=== PATIENT | female | born 1960 | race Caucasian/White ===

== ENCOUNTER → 2016-07-14 | Outpatient (CLI) | payer MEDICAID ==
[~2016-07-14] MED LIST: ALBUTEROL20 ml INH; ATORVASTATIN CA10 MG PO; AUGMENTIN875 M1 PO; BIOTIN OTC PO; BUSPAR5 M1 PO; DEMADEX PO; DESYREL50 MG PO; EFFEXOR-XR150 MG PO; HYDROCODON-ACE1 EAC5 PO; HYDROCODONE/APA1 T16 PO; IBUPROFEN PO; IBUPROFEN800 MG PO; K-DUR20 ME2 PO; LYRICA50 MG PO; NEURONTIN800 MG PO; NEXIUM PO; PERCOCET 5/321 UDTAB DOB; REGLAN10 MG PO; SLEEP AID PO; VENLAFAXINE HC100 MG PO; VENTOLIN HFA; ZOFRAN ODT4 MG PO; ZYLOPRIM100 MG PO; [UNRECOGNIZED DRUG - OTHER]
--- NOTE | ~2016-07-14 | EKG ---
PATIENT: DC BAUER UNIT #: [id number] Ventricular Rate: 87 BPM Atrial Rate: 87 BPM P-R Interval: 154 ms QRS Duration: 86 ms Q-T Interval: 376 ms QTC Calculation(Bezet): 452 ms P [place]: 36 degrees Calculated R [place]: -17 degrees Calculated T [place]: 13 degrees Diagnosis Line: Normal sinus rhythm Diagnosis Line: Minimal voltage criteria for LVH, may be normal Diagnosis Line: variant Diagnosis Line: Otherwise normal ECG Diagnosis Line: When compared with ECG of 06-OCT-2015 19:14, Diagnosis Line: T wave inversion now evident in Inferior leads Diagnosis Line: Confirmed by GAGANDEEP AGUILAR MD ([id number]) on 07/14/2016 Diagnosis Line: 6:26:19 PM INTERPRETING MD: LAUREN BYRNE
[2016-07-14 13:55] LABS: HEMATOCRIT 40.4 % (35.0-45.0); HEMOGLOBIN 13.9 gm/dL (12.0-16.0); MEAN CELL VOLUME 93.3 FL (83-96); MEAN CORPUSCULAR HEMOGLOBIN 32.2 PG (28-34); MEAN CORPUSCULAR HGB CONC 34.5 g/dL (30-36); MEAN PLATELET VOLUME 8.6 FL (6.5-11.5); RED BLOOD COUNT 4.33 X10e (3.90-5.30); RED CELL DISTRIBUTION WIDTH 13.5 % (11.0-15.5); WHITE BLOOD COUNT 7.8 X10e3 (4.0-10.5)
[2016-07-14 14:30] LABS: BLOOD UREA NITROGEN 18 mg/dL (9-23); CALCIUM SERUM 9.3 mg/dL (8.4-10.2); CARBON DIOXIDE 29 mmol/L (22-31); CHLORIDE 106 mmol/L (100-111); CREATININE SERUM 0.9 mg/dL (0.6-1.4); GLOM FILT RATE Estimated ABOVE60 mL/min (>60); GLUCOSE FASTING 113 mg/dL (70-110); POTASSIUM 3.9 mmol/L (3.5-5.1); SODIUM 140 mmol/L (135-145)
== END | disposition home or self-care (01) ==
LOC: CAMB 11:38
PROVIDERS: Orthopaedic Surgery
DX: Z01.812 Encounter for preprocedural laboratory examination (principal); M21.6X2 Other acquired deformities of left foot
CPT/HCPCS: 36415; 80048; 85027; 93005

== ENCOUNTER 2016-07-19 05:48 | Inpatient (IN) | payer MEDICAID ==
--- NOTE | ~2016-07-19 | HP ---
Unit #: [id number] #: [id number] Patient: DC BAUER [id number] [address] [address] [id number] MR#: [id number] NAME: DC BAUER. ROOM: Age: Sex: F Admission Date: 07/19/2016 : 1960 Attending Physician: Ana Champion M.D. Primary Care Physician: Naa Oquendo A.P.R.N. HISTORY AND PHYSICAL CHIEF COMPLAINT Left foot pain. HISTORY OF PRESENT ILLNESS The patient is a 55-year-old female with a history of Iapfoym-Iekcv-Jemyr disease and fibromyalgia. 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 The patient complains of global bilateral midfoot and forefoot pain. She has been treated with bracing. She complains of left foot pain greater than right foot pain although she has bilateral foot deformities. She complains of heel pain and diffuse metatarsalgia. She also complains of symptomatic claw toes involving all toes of the left foot. The patient is therefore admitted for correction of her left foot deformity. PAST MEDICAL HISTORY Past medical history is remarkable for Dullfpb-Viufc-Dmxcb disease, fibromyalgia, gastric ulcer disease, gastroesophageal reflux, hypercholesterolemia, hypertension, irritable bowel syndrome, migraine headaches, chest pain, sleep apnea, gout, nephropathy. HOME MEDICATIONS Allopurinol, buspirone, Bystolic, cyclobenzaprine, Dexilant, gabapentin, Indocin, lorazepam, Nitrostat, Zofran, oxycodone 5/325 p.o. q.12 h., Symbicort, torsemide, trazodone, venlafaxine, Ventolin, Voltaren 1% gel. ALLERGIES Cymbalta, morphine, Phenergan, tramadol. PAST SURGICAL HISTORY , colonoscopy, femoral repair, cholecystectomy, gastric bypass, hysterectomy, oophorectomy, pacemaker, endoscopy. FAMILY HISTORY Arthritis, asthma, breast cancer, depression, hypercholesterolemia, hypertension, alcohol abuse. SOCIAL HISTORY The patient is a nonsmoker and denies the use of alcohol or drugs. PHYSICAL EXAMINATION GENERAL: Height 5 foot 5, weight 229 pounds, BMI of 38. In general this Unit #: [id number] #: [id number] Patient: DC BAUER is a morbidly obese female in no acute distress. HEENT: Pharynx is clear. NECK: The neck is supple, without mass. HEART: Exam reveals a regular sinus rhythm without murmurs or gallops. LUNGS: The lungs are clear. ABDOMEN: The abdomen is soft and nontender, without masses or organomegaly. EXTREMITIES: Evaluation of the left foot demonstrates a significant cavus deformity with neutral hindfoot. The forefoot is in rectus position. Bilateral ankle dorsiflexion is limited to -5 degrees, plantar flexion 40 degrees, subtalar inversion 30, eversion is 10. First MTP join dorsiflexion 90, plantar flexion 30. She has fixed claw toe deformities of the first through fifth toes bilaterally. Distal pulses are 1+/2. Sensation is intact. Motor exam shows 5+/5 motor strength testing ankle dorsiflexion, plantar flexion, eversion and inversion. DIAGNOSTIC STUDIES IMAGING: Standing x-rays of the left foot show a lateral talo-first metatarsal angle of 30 degrees, calcaneal pitch of 32 degrees, medial cuneiform height 23 mm. ADMITTING DIAGNOSIS 1. Symptomatic left cavus foot secondary to Jeinepy-Etscr-Stfkc disease. 2. Left first through fifth claw toes, symptomatic. 3. Left ankle equinus. PLAN 1. The patient has failed conservative care to include bracing and orthotics. The patient is therefore admitted for surgical correction. 2. This would entail dorsal closing wedge osteotomy of the midfoot through the naviculocuneiform joint and cuboid. A calcaneal osteotomy will not be required because the patient does not have heel varus. A plantar fascia release will be performed along with a gastrocnemius recession. Claw toes will be corrected with Mini MaxTorque screws. This procedure was described along with risks of bleeding, infection, nerve damage, need for further surgery in the future, prolonged recovery time, deep venous thrombosis, pulmonary embolism, anesthetic complications, persistent pain, persistent swelling. The patient understands the above risks and agrees to proceed with the treatment plan. She reviewed the operative permit and signed it in our office. Dictated by R. Magnus Lott/maddie TD: 07/18/2016 22:53 JOB #: [id number] Unit #: [id number] #: [id number] Patient: DC BAUER HISTORY AND PHYSICAL X Sil Champion MD X HISTORY AND PHYSICAL
--- NOTE | ~2016-07-19 | OR ---
Unit #: [id number] #: [id number] Patient: DC BAUER [id number] [address] [address] [id number] I MR#: [id number] NAME: DC BAUER. ROOM: [facility] Date of Procedure: 07/19/2016 Admission Date: 07/19/2016 Surgeon: Ana Champion M.D. : 1960 Attending Physician: Ana Champion M.D. Primary Care Physician: Naa Oquendo A.P.R.N. OPERATIVE REPORT PREOPERATIVE DIAGNOSES 1. Left cavus foot secondary to Uutjqug-Alrrc-Zfmcn disease. 2. Left first through fifth claw toes, symptomatic. POSTOPERATIVE DIAGNOSES 1. Left cavus foot secondary to Rnzsobz-Uiipa-Lifvs disease. 2. Left first through fifth claw toes, symptomatic. PROCEDURES PERFORMED 1. Left dorsal closing midfoot osteotomy with naviculocuneiform joint fusion (95500). 2. Left hallux interphalangeal joint fusion (90322). 3. Left second claw toe correction (73016, 03102). 4. Left third claw toe correction (19362, 83409). 5. Left fourth claw toe correction (30085, 31014). 6. Left fifth claw toe correction (27381, 11980). 7. Left plantar fascia release (01168). PARTS REPRESENTATIVE MD Elliott and IVELISSE Denis. ANESTHESIA Popliteal saphenous block and general. INDICATIONS FOR SURGERY The patient is a 55-year-old female with symptomatic left cavus foot and symptomatic clawing of all toes secondary to Ezfrfkb-Tqavg-Bhrvr disease. She has failed treatment with bracing and orthotics. She has significant pain in the plantar forefoot secondary to forefoot equinus. She is therefore to undergo correction of her deformities surgically. DESCRIPTION OF PROCEDURE The patient was taken to the operating room following left popliteal saphenous block. She was placed in supine position. General anesthetic was induced. The left foot was identified as the correct operative extremity during the time-out procedure. The IV antibiotic protocol was followed. The left foot was then prepped and draped in the usual sterile fashion. The leg was exsanguinated and the thigh tourniquet inflated to 300 mmHg. A medial longitudinal incision was made over the mid foot. Subcutaneous tissue was divided. The anterior tibial tendon was identified and Unit #: [id number] #: [id number] Patient: DC BAUER. The naviculocuneiform joint was exposed subperiosteally. A lateral midfoot longitudinal incision was then made. The subcutaneous tissue was carefully divided. The extensor digitorum brevis muscle was reflected proximally and superiorly to expose the cuboid. Under C-arm fluoroscopic control, two converging 0.062-inch diameter smooth K-wires were drilled from dorsal to plantar to form a 1.5 cm closing wedge dorsally over the naviculocuneiform joint. These wires were then used as guides for the sagittal saw to cut the midfoot fashioning a dorsal closing wedge midfoot osteotomy through the naviculocuneiform joint. The osteotomy was completed across the cuboid. The bony wedge was then removed. A 3 cm incision was made over the medial heel. The subcutaneous tissue was divided. The plantar fascia was exposed and the plantar fascia was cut in its entirety with tenotomy scissors. This allowed complete closure of the dorsal closing wedge osteotomy. The osteotomy was then provisionally fixated with 2 crossed K-wires placed from distal to proximal. The OrthoHelix plating system was utilized to place 3 Peanut plates over the dorsal, dorsal lateral, and dorsal medial aspect of the osteotomy site. These plates were fixated with 4.0 mm diameter cortical screws. Excellent fixation was achieved. Because of significant clawing of all the toes, the toes were fused in straight position. A dorsal transverse incision was made over the hallux interphalangeal joint. Subcutaneous tissue was divided. A microsagittal saw was used to remove the articular cartilage from both sides of the joint. The guide pin was then placed through the middle of the distal phalanx drilled out of the tip of the toe and then reversed across the interphalangeal joint. A small stab incision was made. The tip of the toe and the countersink were utilized. A 3.8 mm diameter Mini MaxTorque screw was then placed over the guide pin and tightened. Excellent fixation was achieved. A dorsal transverse elliptical incisions were then made over the proximal interphalangeal joints of the second, third, fourth, and fifth toes. The skin and joint capsule were excised along in line with these incisions. The microsagittal saw was then used to remove the articular cartilage from both sides of the proximal interphalangeal joints of the second, third, fourth, and fifth toes. The definitive internal fixation of the toes was performed with a 3.2 mm diameter OrthoHelix Mini MaxTorque screws. Prior to screw placement, the flexor digitorum longus tendon was released with tenotomy scissors through the dorsal aspect of the proximal interphalangeal joint. A 3.2 mm diameter Mini MaxTorque screws were then placed over the pins and tightened. Excellent fixation was achieved. All toes rested in excellent position except for the fifth toe which was still slightly hyperextended at the metatarsophalangeal joint. Therefore, a 3 cm incision was made over the dorsal aspect of the fifth metatarsal. The subcutaneous tissue was divided. The extensor digitorum longus tendon to the fifth toe was then lengthened in a Z fashion and then sutured in a lengthened position with 3-0 Vicryl. It was then allowed the toe to rest in satisfactory position. Unit #: [id number] #: [id number] Patient: DC BAUER All wounds were copiously irrigated. The tourniquet was released with a total tourniquet time of 1 hour 50 minutes. Bleeding was controlled with electrocautery. Subcutaneous tissue was closed with 3-0 Vicryl and skin was closed with 3-0 nylon horizontal mattress sutures. Xeroform gauze dressing, sponges, Webril, and a posterior fiberglass splint were applied. The patient was then transported to the recovery room in stable condition. ESTIMATED BLOOD LOSS Minimal. COMPLICATIONS None. SPECIMENS None. TOURNIQUET TIME 1 hour 50 minutes. Dictated by.Magnus Roper/gutierrez TD: 07/20/2016 06:31 JOB #: [id number] OPERATIVE REPORT X Sil Champion MD X PROCEDURE OPERATIVE NOTE
--- NOTE | ~2016-07-19 | DS ---
Unit #: [id number] #: [id number] Patient: DC BAUER [id number] [address] [place], [place] [address] [id number] I MR#: [id number] NAME: DC BAUER. ROOM: [facility] Age: 55 Sex: F Admission Date: 07/19/2016 : 1960 Discharge Date: 07/22/2016 Attending Physician: Ana Champion M.D. Primary Care Physician: Naa Oquendo A.P.R.N. DISCHARGE SUMMARY CHIEF COMPLAINT Left symptomatic cavus foot and claw toes. HISTORY OF PRESENT ILLNESS This 55-year-old female, with symptomatic left cavus foot and symptomatic clawing of all toes secondary to Hqlqlbg-Eypsc-Hcnzp disease, has failed conservative care with bracing and orthotics. She was, therefore, admitted for surgical correction. HOSPITAL COURSE The patient was taken to the operating room on 07/19/2016 where she underwent left dorsal mid foot closing wedge osteotomy with naviculocuneiform fusion and fusion of the left hallux interphalangeal joint, as well as fusions of the 2nd through 5th toe PIP joints and plantar fascia release. There were no operative complications. She had a stable postoperative course, except she had difficulty with pain control. 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 She was seen by physical therapy on a daily basis and instructed on how to remain nonweightbearing on her affected side. Dressing was changed on the second postoperative day. Wounds were healing well. She was ready for discharge on the third postoperative day, 07/22/2016. FINAL DIAGNOSIS 1. Lvnaybo-Tbrlm-Etyee disease. 2. Left cavus foot, symptomatic. 3. Left first through fifth claw toes. DISPOSITION/RECOMMENDATIONS 1. The patient is discharged to rehabilitation. She will continue physical therapy and occupational therapy at that location. She will remain strictly nonweightbearing on the left foot for a total of 6 weeks. Dressing should be kept clean, dry and intact. The dressing does not have to be changed, and if it needs to be changed, please call Dr. Champion at for instructions. Continue ice and elevation. 2. Discharge medications are as follows: Albuterol 2 puffs q.6 hours p.r.n. dyspnea; Lyrica 50 mg p.o. t.i.d.; Desyrel 50 mg p.o. q.h.s.; Effexor 300 mg p.o. daily; Zofran 4 mg p.o. q.8 hours p.r.n. nausea; Demadex 20 mg p.o. b.i.d.; atorvastatin 10 mg p.o. daily; Zyloprim 100 mg p.o. t.i.d.; ibuprofen PM 3 tabs p.o. q.h.s.; Percocet 10/325 mg 1 or 2 p.o. q.4-6 hours p.r.n. pain; potassium chloride 20 mEq p.o. b.i.d.; polyethylene powder 1 cap p.o. b.i.d. in 6 oz of juice. 3. Follow up in the office with Dr. Champion in 10-14 days for dressing change, suture removal and application of a cast. Unit #: [id number] #: [id number] Patient: DC BAUER Dictated by.Magnus Roper/ethan TD: 07/21/2016 08:50 JOB #: [id number] DISCHARGE SUMMARY X Sil Champion MD X DISCHARGE SUMMARY
[~2016-07-19 05:48] MED LIST changes: -ALBUTEROL20 ml INH; -ATORVASTATIN CA10 MG PO; -HYDROCODON-ACE1 EAC5 PO; -IBUPROFEN PO; -K-DUR20 ME2 PO; -LYRICA50 MG PO; -NEXIUM PO; -[UNRECOGNIZED DRUG - OTHER]
[2016-07-19] MEDS ORDERED: [UNRECOGNIZED DRUG - OTHER] (06:36)
[2016-07-19] MEDS ORDERED: EFFEXOR-XR150 MG PO (08:13)
[2016-07-19] MEDS ORDERED: K-DUR20 ME2 PO (08:14)
[2016-07-19] MEDS ORDERED: IBUPROFEN PO (12:41)
[2016-07-19] MEDS ORDERED: ALBUTEROL20 ml INH (12:42)
[2016-07-19] MEDS ORDERED: HYDROCODON-ACE1 EAC5 PO (12:44)
[2016-07-19] MEDS ORDERED: LYRICA50 MG PO (12:46)
[2016-07-19] MEDS ORDERED: NEXIUM PO (12:47)
[2016-07-19] MEDS ORDERED: ATORVASTATIN CA10 MG PO (13:01)
[2016-07-20 03:56] LABS: HEMATOCRIT 36.7 % (35.0-45.0); HEMOGLOBIN 12.3 gm/dL (12.0-16.0)
[2016-07-21 03:11] LABS: HEMOGLOBIN 12.6 gm/dL (12.0-16.0)
== END 2016-07-22 19:05 | DRG 502 ==
LOC: CSUR 05:48 → CPACUOF 11:45 → C4B 13:25
PROVIDERS: Orthopaedic Surgery
PROC: 0SGQ04Z Fusion of Left Toe Phalangeal Joint with Internal Fixation Device, Open Approach (ICD-10-PCS; 2016-07-19)
PROC: 0SGQ04Z Fusion of Left Toe Phalangeal Joint with Internal Fixation Device, Open Approach (ICD-10-PCS; 2016-07-19)
PROC: 0SGQ04Z Fusion of Left Toe Phalangeal Joint with Internal Fixation Device, Open Approach (ICD-10-PCS; 2016-07-19)
PROC: 0SGQ04Z Fusion of Left Toe Phalangeal Joint with Internal Fixation Device, Open Approach (ICD-10-PCS; 2016-07-19)
PROC: 0SGQ04Z Fusion of Left Toe Phalangeal Joint with Internal Fixation Device, Open Approach (ICD-10-PCS; 2016-07-19)
PROC: 0QBM0ZZ Excision of Left Tarsal, Open Approach (ICD-10-PCS; principal; 2016-07-19 10:00)
PROC: 0JNR0ZZ Release Left Foot Subcutaneous Tissue and Fascia, Open Approach (ICD-10-PCS; 2016-07-19 10:00)
PROC: 0SGJ04Z Fusion of Left Tarsal Joint with Internal Fixation Device, Open Approach (ICD-10-PCS; 2016-07-19 10:00)
PROC: 0SGL04Z Fusion of Left Tarsometatarsal Joint with Internal Fixation Device, Open Approach (ICD-10-PCS; 2016-07-19 10:00)
DX: Q66.7 Congenital pes cavus (principal); G60.0 Hereditary motor and sensory neuropathy; I10 Essential (primary) hypertension; Q66.89 Other specified congenital deformities of feet; M79.7 Fibromyalgia; K21.9 Gastro-esophageal reflux disease without esophagitis; E78.00 Pure hypercholesterolemia, unspecified; Z95.0 Presence of cardiac pacemaker; Z90.49 Acquired absence of other specified parts of digestive tract; Z90.710 Acquired absence of both cervix and uterus
CPT/HCPCS: 85014; 85018; 94640; 94664; 94760; 97110; 97116; 97163; 97530; C1713; J0690; J2250; J2405; J2795; J3010